=== PATIENT | female | born 1935 | race Caucasian/White ===

== ENCOUNTER 2017-07-22 23:40 | Inpatient (IN) | payer MEDICARE, OTHER ==
[2017-07-23 00:22] LABS: ADD MAN DIFF? NO
[2017-07-23 00:23] LABS: WHITE BLOOD COUNT 14.4 10^3/ul (4.8-10.8)
[2017-07-23 00:23] LABS: BASOPHIL # 0.1 10^3/ul (0.0-0.1); BASOPHILS % 0.3 % (0.0-2.0); EOSINOPHILS # 0.3 10^3/ul (0.0-0.5); HEMATOCRIT 36.9 % (37.0-47.0); HEMOGLOBIN 11.7 g/dl (12.0-16.0); LYMPHOCYTES # 1.7 10^3/ul (0.8-2.9); LYMPHOCYTES % 11.6 % (15.0-51.0); MEAN CORPUSCULAR HEMOGLOBIN 25.5 pg (29.0-33.0); MEAN CORPUSCULAR HGB CONC 31.7 g/dl (32.0-37.0); MEAN CORPUSCULAR VOLUME 80.6 fl (82.0-101.0); MEAN PLATELET VOLUME 12.6 fl (7.4-10.4); MONOCYTE # 0.8 10^3/ul (0.3-0.9); MONOCYTES % 5.7 % (0.0-11.0); NEUTROPHIL # 11.5 10^3/ul (1.6-7.5); NEUTROPHILS % 80.1 % (39.0-77.0); PLATELET COUNT 224 10^3/UL (140-415); RED BLOOD COUNT 4.58 10^6/ul (4.20-5.40); RED CELL DISTRIBUTION WIDTH 15.4 % (11.5-14.5)
[2017-07-23 00:41] LABS: ALANINE AMINOTRANSFERASE 21 IU/L (13-69); ALBUMIN 3.7 g/dl (3.3-4.9); ALKALINE PHOSPHATASE 119 IU/L (42-121); ANION GAP 13 (8-16); ASPARTATE AMINO TRANSFERASE 20 IU/L (15-46); BILIRUBIN,INDIRECT 0.1 mg/dl (0-1.1); BILIRUBIN,TOTAL 0.1 mg/dl (0.2-1.3); BLOOD UREA NITROGEN 26 mg/dl (7-20); CALCIUM 9.5 mg/dl (8.4-10.2); CARBON DIOXIDE 25 mmol/L (21-31); CHLORIDE 107 mmol/L (97-110); CREATININE 0.82 mg/dl (0.44-1.00); GLUCOSE 101 mg/dl (70-220); POTASSIUM 3.9 mmol/L (3.5-5.1); SODIUM 141 mmol/L (135-144); TOTAL PROTEIN 7.4 g/dl (6.1-8.1)
[2017-07-23 00:54] LABS: TROPONIN-I < 0.012 ng/ml (0.00-0.12)
[2017-07-23 00:59] LABS: INR 1.08; PROTIME 14.1 Sec (11.9-14.9); PT RATIO 1.1
[2017-07-23 01:00] LABS: LACTIC ACID 2.4 mmol/L (0.5-2.0)
[2017-07-23 01:08] LABS: ADD UMIC YES; UR ASCORBIC ACID NEGATIVE (NEGATIVE); UR BILIRUBIN (Dip) NEGATIVE (NEGATIVE); UR BLOOD (Dip) 1+ mg/dL (NEGATIVE); UR CLARITY CLEAR (CLEAR); UR COLOR YELLOW (YELLOW); UR GLUCOSE (Dip) 3+ mg/dL (NEGATIVE); UR KETONES (Dip) NEGATIVE (NEGATIVE); UR LEUKOCYTE ESTERASE (Dip) NEGATIVE Leu/ul (NEGATIVE); UR NITRITE (Dip) NEGATIVE (NEGATIVE); UR RBC 13 /HPF (0-5); UR SPECIFIC GRAVITY (Dip) 1.011 (1.003-1.030); UR TOTAL PROTEIN (Dip) 2+ mg/dl (NEGATIVE); UR UROBILINOGEN (Dip) NEGATIVE (NEGATIVE); UR WBC 2 /HPF (0-5)
[2017-07-23] MEDS: SODIUM CHLORIDE 0.9% 1L BAG IV* (01:37)
[2017-07-23] MEDS: CEFEPIME 2GM/50 ML (PMX) 50 ML IVPB (01:37)
[2017-07-23] MEDS: VANCOMYCIN 1 GM (PMX) 250 ML IVPB (02:24)
[2017-07-23 03:39] LABS: LACTIC ACID 1.3 mmol/L (0.5-2.0)
[2017-07-23] MEDS: ALBUTEROL/IPRATROPIUM (NEB) 3 ML AMP HHN (03:57)
[2017-07-23] MEDS: METHYLPREDNISOLONE 40 MG INJ IV ×5 (04:09→23:58)
[2017-07-23] MEDS: DEXTROSE 5%-0.45% NACL 1,000 ML IV ×2 (04:10→17:58)
[2017-07-23] MEDS ORDERED: GLUCOSE GEL 15 GRAM TUBE BUCCAL (04:30)
[2017-07-23] MEDS ORDERED: GLUCAGON 1 MG INJ IM (04:30)
[2017-07-23] MEDS ORDERED: DEXTROSE 50% 50 ML SYRINGE IV ×2 (04:30)
[2017-07-23] MEDS ORDERED: GLUCOSE GEL 15 GRAM TUBE PO ×2 (04:30)
[2017-07-23] MEDS: INSULIN ASPART [NOVOLOG] 3 ML PEN SC ×6 (04:51→21:58)
[2017-07-23] MEDS: LEVOFLOXACIN 750MG/D5W (PMX) 150 ML IVPB (05:10)
[2017-07-23 05:50] LABS: ADD MAN DIFF? NO
[2017-07-23 06:00] LABS: WHITE BLOOD COUNT 9.9 10^3/ul (4.8-10.8)
[2017-07-23 06:00] LABS: BASOPHILS % 0.2 % (0.0-2.0); EOSINOPHILS # 0.1 10^3/ul (0.0-0.5); LYMPHOCYTES # 1.2 10^3/ul (0.8-2.9); LYMPHOCYTES % 12.5 % (15.0-51.0); MEAN CORPUSCULAR HEMOGLOBIN 25.7 pg (29.0-33.0); MEAN CORPUSCULAR HGB CONC 32.4 g/dl (32.0-37.0); MEAN CORPUSCULAR VOLUME 79.4 fl (82.0-101.0); MEAN PLATELET VOLUME 12.9 fl (7.4-10.4); MONOCYTE # 0.3 10^3/ul (0.3-0.9); MONOCYTES % 3.3 % (0.0-11.0); NEUTROPHIL # 8.2 10^3/ul (1.6-7.5); NEUTROPHILS % 82.6 % (39.0-77.0); PLATELET COUNT 212 10^3/UL (140-415); RED BLOOD COUNT 4.28 10^6/ul (4.20-5.40); RED CELL DISTRIBUTION WIDTH 15.4 % (11.5-14.5)
[2017-07-23 06:20] LABS: ANION GAP 13 (8-16); BLOOD UREA NITROGEN 21 mg/dl (7-20); CALCIUM 8.6 mg/dl (8.4-10.2); CARBON DIOXIDE 27 mmol/L (21-31); CHLORIDE 110 mmol/L (97-110); CREATININE 0.73 mg/dl (0.44-1.00); GLUCOSE 138 mg/dl (70-220); POTASSIUM 4.8 mmol/L (3.5-5.1); SODIUM 145 mmol/L (135-144)
[2017-07-23 06:21] LABS: LACTIC ACID 1.3 mmol/L (0.5-2.0)
[2017-07-23] MEDS: ENOXAPARIN 40 MG/0.4 ML SYG SC (08:24)
[2017-07-23 13:52] LABS: HEMOGLOBIN A1C 10.5 % (0-5.9); THYROID STIMULATING HORMONE 0.299 MIU/L (0.465-4.680)
[2017-07-23] MEDS: INSULIN GLARGINE [LANtus] 3 ML PEN SC (20:24)
[2017-07-23] MEDS ORDERED: INSULIN GLARGINE HUM REC ANLOG 26 UNIT SQ (21:00)
[2017-07-23] MEDS ORDERED: [UNRECOGNIZED DRUG - OTHER] SQ (21:00)
[2017-07-23] MEDS: ATORVASTATIN 20 MG TAB PO (21:15)
[2017-07-23] MEDS: SOD CHLORIDE 0.45% 1,000 ML IV (21:59)
[2017-07-24] MEDS: INSULIN ASPART [NOVOLOG] 3 ML PEN SC ×9 (01:12→21:08)
[2017-07-24] MEDS ORDERED: ACCU-CHEK XX (02:00)
[2017-07-24] MEDS: ACCU-CHEK XX (02:00)
[2017-07-24] MEDS: METHYLPREDNISOLONE 40 MG INJ IV ×4 (05:30→23:49)
[2017-07-24 05:56] LABS: ADD MAN DIFF? NO
[2017-07-24 05:58] LABS: WHITE BLOOD COUNT 6.6 10^3/ul (4.8-10.8)
[2017-07-24 05:58] LABS: HEMOGLOBIN 10.9 g/dl (12.0-16.0); LYMPHOCYTES # 1.1 10^3/ul (0.8-2.9); LYMPHOCYTES % 16.1 % (15.0-51.0); MEAN CORPUSCULAR HEMOGLOBIN 25.7 pg (29.0-33.0); MEAN CORPUSCULAR HGB CONC 32.1 g/dl (32.0-37.0); MEAN CORPUSCULAR VOLUME 80.2 fl (82.0-101.0); MEAN PLATELET VOLUME 12.7 fl (7.4-10.4); MONOCYTE # 0.2 10^3/ul (0.3-0.9); MONOCYTES % 2.9 % (0.0-11.0); NEUTROPHIL # 5.3 10^3/ul (1.6-7.5); NEUTROPHILS % 80.5 % (39.0-77.0); PLATELET COUNT 210 10^3/UL (140-415); RED BLOOD COUNT 4.24 10^6/ul (4.20-5.40); RED CELL DISTRIBUTION WIDTH 15.1 % (11.5-14.5)
[2017-07-24 06:50] LABS: ANION GAP 12 (8-16); BLOOD UREA NITROGEN 21 mg/dl (7-20); CALCIUM 8.7 mg/dl (8.4-10.2); CARBON DIOXIDE 28 mmol/L (21-31); CHLORIDE 108 mmol/L (97-110); CREATININE 0.89 mg/dl (0.44-1.00); GLUCOSE 230 mg/dl (70-220); POTASSIUM 4.5 mmol/L (3.5-5.1); SODIUM 143 mmol/L (135-144)
[2017-07-24] MEDS: ASPIRIN 81 MG TAB PO (08:14)
[2017-07-24] MEDS: DULOXETINE 30 MG CAP DR PO (08:14)
[2017-07-24] MEDS: PANTOPRAZOLE (EC) 40 MG TAB PO (08:14)
[2017-07-24] MEDS: ENOXAPARIN 40 MG/0.4 ML SYG SC (08:18)
[2017-07-24] MEDS: ALBUTEROL/IPRATROPIUM (NEB) 3 ML AMP HHN (09:57)
[2017-07-24] MEDS: SOD CHLORIDE 0.45% 1,000 ML IV (17:20)
[2017-07-24] MEDS: INSULIN GLARGINE [LANtus] 3 ML PEN SC (20:10)
[2017-07-24] MEDS: ATORVASTATIN 20 MG TAB PO (20:54)
[2017-07-25] MEDS: ACCU-CHEK XX (02:00)
[2017-07-25] MEDS: METHYLPREDNISOLONE 40 MG INJ IV ×3 (05:39→18:01)
[2017-07-25] MEDS: LEVOFLOXACIN 500 MG TAB PO (05:39)
[2017-07-25 07:17] LABS: ADD MAN DIFF? NO
[2017-07-25 07:22] LABS: BASOPHILS % 0.1 % (0.0-2.0); HEMATOCRIT 32.5 % (37.0-47.0); HEMOGLOBIN 10.8 g/dl (12.0-16.0); LYMPHOCYTES % 11.6 % (15.0-51.0); MEAN CORPUSCULAR HEMOGLOBIN 25.9 pg (29.0-33.0); MEAN CORPUSCULAR HGB CONC 33.2 g/dl (32.0-37.0); MEAN CORPUSCULAR VOLUME 77.9 fl (82.0-101.0); MONOCYTE # 0.3 10^3/ul (0.3-0.9); NEUTROPHIL # 7.6 10^3/ul (1.6-7.5); PLATELET COUNT 222 10^3/UL (140-415); RED BLOOD COUNT 4.17 10^6/ul (4.20-5.40); RED CELL DISTRIBUTION WIDTH 15.2 % (11.5-14.5)
[2017-07-25 07:22] LABS: WHITE BLOOD COUNT 8.9 10^3/ul (4.8-10.8)
[2017-07-25 07:46] LABS: ANION GAP 11 (8-16); BLOOD UREA NITROGEN 28 mg/dl (7-20); CALCIUM 8.7 mg/dl (8.4-10.2); CARBON DIOXIDE 28 mmol/L (21-31); CHLORIDE 109 mmol/L (97-110); CREATININE 0.81 mg/dl (0.44-1.00); GLUCOSE 331 mg/dl (70-220); POTASSIUM 4.5 mmol/L (3.5-5.1); SODIUM 143 mmol/L (135-144)
[2017-07-25] MEDS: PANTOPRAZOLE (EC) 40 MG TAB PO (07:56)
[2017-07-25] MEDS: INSULIN ASPART [NOVOLOG] 3 ML PEN SC ×7 (07:58→21:10)
[2017-07-25] MEDS: ASPIRIN 81 MG TAB PO (08:17)
[2017-07-25] MEDS: DULOXETINE 30 MG CAP DR PO (08:17)
[2017-07-25] MEDS: ENOXAPARIN 40 MG/0.4 ML SYG SC (08:18)
[2017-07-25] MEDS: INSULIN GLARGINE [LANtus] 3 ML PEN SC (20:07)
[2017-07-25] MEDS: ATORVASTATIN 20 MG TAB PO (21:06)
[2017-07-26] MEDS: METHYLPREDNISOLONE 40 MG INJ IV ×4 (00:40→17:37)
[2017-07-26] MEDS: ACCU-CHEK XX (02:00)
[2017-07-26] MEDS: LEVOFLOXACIN 500 MG TAB PO (05:41)
[2017-07-26 06:27] LABS: ADD MAN DIFF? NO
[2017-07-26 06:39] LABS: HEMATOCRIT 32.6 % (37.0-47.0); HEMOGLOBIN 10.9 g/dl (12.0-16.0); LYMPHOCYTES # 0.9 10^3/ul (0.8-2.9); LYMPHOCYTES % 10.4 % (15.0-51.0); MEAN CORPUSCULAR HGB CONC 33.4 g/dl (32.0-37.0); MEAN CORPUSCULAR VOLUME 77.8 fl (82.0-101.0); MEAN PLATELET VOLUME 12.6 fl (7.4-10.4); MONOCYTE # 0.2 10^3/ul (0.3-0.9); NEUTROPHIL # 7.1 10^3/ul (1.6-7.5); NEUTROPHILS % 87.4 % (39.0-77.0); PLATELET COUNT 197 10^3/UL (140-415); RED BLOOD COUNT 4.19 10^6/ul (4.20-5.40); RED CELL DISTRIBUTION WIDTH 14.8 % (11.5-14.5)
[2017-07-26 06:39] LABS: WHITE BLOOD COUNT 8.2 10^3/ul (4.8-10.8)
[2017-07-26 06:57] LABS: ANION GAP 8 (8-16); BLOOD UREA NITROGEN 36 mg/dl (7-20); CALCIUM 8.5 mg/dl (8.4-10.2); CARBON DIOXIDE 28 mmol/L (21-31); CHLORIDE 109 mmol/L (97-110); CREATININE 0.79 mg/dl (0.44-1.00); GLUCOSE 232 mg/dl (70-220); POTASSIUM 4.4 mmol/L (3.5-5.1); SODIUM 141 mmol/L (135-144)
[2017-07-26] MEDS: DULOXETINE 30 MG CAP DR PO (08:20)
[2017-07-26] MEDS: ASPIRIN 81 MG TAB PO (08:20)
[2017-07-26] MEDS: PANTOPRAZOLE (EC) 40 MG TAB PO (08:21)
[2017-07-26] MEDS: ENOXAPARIN 40 MG/0.4 ML SYG SC (08:22)
[2017-07-26] MEDS: INSULIN ASPART [NOVOLOG] 3 ML PEN SC ×7 (08:23→20:36)
[2017-07-26 16:33] LABS: IRON 68 ug/dl (35-150)
[2017-07-26 16:42] LABS: % IRON SATURATION 22 % SAT (22-52); TOTAL IRON BINDING CAPACITY 307 ug/dl (241-421)
[2017-07-26 17:09] LABS: FERRITIN 12.5 ng/ml (11.1-264.0)
[2017-07-26] MEDS: NPH, HUMAN INSULIN ISOPHANE 3ML VIAL SC (17:40)
[2017-07-26] MEDS ORDERED: LEVALBUTEROL (NEB) 0.63 MG/3 ML AMP HHN (18:30)
[2017-07-26] MEDS: LEVALBUTEROL (NEB) 0.63 MG/3 ML AMP HHN (20:36)
[2017-07-26] MEDS: INSULIN GLARGINE [LANtus] 3 ML PEN SC (20:39)
[2017-07-26] MEDS: ATORVASTATIN 20 MG TAB PO (20:39)
[2017-07-27] MEDS: METHYLPREDNISOLONE 40 MG INJ IV ×4 (00:35→17:45)
[2017-07-27] MEDS: NPH, HUMAN INSULIN ISOPHANE 3ML VIAL SC ×4 (00:36→17:45)
[2017-07-27] MEDS: LEVALBUTEROL (NEB) 0.63 MG/3 ML AMP HHN ×4 (01:32→19:22)
[2017-07-27] MEDS: ACCU-CHEK XX (02:00)
[2017-07-27 05:27] LABS: ADD MAN DIFF? NO
[2017-07-27 05:42] LABS: ABNORMAL IP MESSAGE 1; HEMATOCRIT 33.8 % (37.0-47.0); LYMPHOCYTES # 0.5 10^3/ul (0.8-2.9); LYMPHOCYTES % 8.1 % (15.0-51.0); MEAN CORPUSCULAR HEMOGLOBIN 25.5 pg (29.0-33.0); MEAN CORPUSCULAR HGB CONC 32.5 g/dl (32.0-37.0); MEAN CORPUSCULAR VOLUME 78.2 fl (82.0-101.0); MEAN PLATELET VOLUME 13.4 fl (7.4-10.4); MONOCYTE # 0.2 10^3/ul (0.3-0.9); MONOCYTES % 3.7 % (0.0-11.0); NEUTROPHIL # 5.7 10^3/ul (1.6-7.5); NEUTROPHILS % 87.7 % (39.0-77.0); PLATELET COUNT 198 10^3/UL (140-415); RED BLOOD COUNT 4.32 10^6/ul (4.20-5.40); RED CELL DISTRIBUTION WIDTH 14.6 % (11.5-14.5)
[2017-07-27 05:42] LABS: WHITE BLOOD COUNT 6.5 10^3/ul (4.8-10.8)
[2017-07-27 05:52] LABS: POSITIVE DIFF @See below
[2017-07-27 06:16] LABS: ANION GAP 13 (8-16); BLOOD UREA NITROGEN 37 mg/dl (7-20); CALCIUM 8.5 mg/dl (8.4-10.2); CARBON DIOXIDE 29 mmol/L (21-31); CHLORIDE 108 mmol/L (97-110); CREATININE 0.74 mg/dl (0.44-1.00); GLUCOSE 145 mg/dl (70-220); POTASSIUM 4.2 mmol/L (3.5-5.1); SODIUM 146 mmol/L (135-144)
[2017-07-27] MEDS: PANTOPRAZOLE (EC) 40 MG TAB PO (06:56)
[2017-07-27] MEDS: INSULIN ASPART [NOVOLOG] 3 ML PEN SC ×8 (07:30→20:53)
[2017-07-27] MEDS: ASPIRIN 81 MG TAB PO (08:35)
[2017-07-27] MEDS: DULOXETINE 30 MG CAP DR PO (08:35)
[2017-07-27] MEDS: ENOXAPARIN 40 MG/0.4 ML SYG SC (08:37)
[2017-07-27] MEDS: INSULIN GLARGINE [LANtus] 3 ML PEN SC (20:51)
[2017-07-27] MEDS: ATORVASTATIN 20 MG TAB PO (20:52)
[2017-07-28] MEDS: METHYLPREDNISOLONE 40 MG INJ IV ×4 (00:07→17:21)
[2017-07-28] MEDS: NPH, HUMAN INSULIN ISOPHANE 3ML VIAL SC ×4 (00:08→17:25)
[2017-07-28] MEDS: LEVALBUTEROL (NEB) 0.63 MG/3 ML AMP HHN ×4 (01:36→19:47)
[2017-07-28] MEDS: ACCU-CHEK XX (02:07)
[2017-07-28 04:58] LABS: ADD MAN DIFF? NO
[2017-07-28 05:00] LABS: BASOPHILS % 0.1 % (0.0-2.0); HEMATOCRIT 35.1 % (37.0-47.0); HEMOGLOBIN 11.4 g/dl (12.0-16.0); LYMPHOCYTES # 0.7 10^3/ul (0.8-2.9); LYMPHOCYTES % 8.3 % (15.0-51.0); MEAN CORPUSCULAR HEMOGLOBIN 25.3 pg (29.0-33.0); MEAN CORPUSCULAR HGB CONC 32.5 g/dl (32.0-37.0); MONOCYTE # 0.4 10^3/ul (0.3-0.9); MONOCYTES % 4.4 % (0.0-11.0); NEUTROPHIL # 6.9 10^3/ul (1.6-7.5); NEUTROPHILS % 86.7 % (39.0-77.0); PLATELET COUNT 190 10^3/UL (140-415); RED CELL DISTRIBUTION WIDTH 14.6 % (11.5-14.5)
[2017-07-28 06:08] LABS: ANION GAP 12 (8-16); BLOOD UREA NITROGEN 35 mg/dl (7-20); CALCIUM 8.7 mg/dl (8.4-10.2); CARBON DIOXIDE 31 mmol/L (21-31); CHLORIDE 107 mmol/L (97-110); CREATININE 0.68 mg/dl (0.44-1.00); GLUCOSE 178 mg/dl (70-220); POTASSIUM 4.1 mmol/L (3.5-5.1); SODIUM 146 mmol/L (135-144)
[2017-07-28] MEDS: INSULIN ASPART [NOVOLOG] 3 ML PEN SC ×7 (07:30→20:25)
[2017-07-28] MEDS: PANTOPRAZOLE (EC) 40 MG TAB PO (08:08)
[2017-07-28] MEDS: ENOXAPARIN 40 MG/0.4 ML SYG SC (08:35)
[2017-07-28] MEDS: ASPIRIN 81 MG TAB PO (08:36)
[2017-07-28] MEDS: DULOXETINE 30 MG CAP DR PO (08:36)
[2017-07-28] MEDS: SALMETEROL/FLUTICASONE 250/50 INHA INH ×2 (12:30→20:26)
[2017-07-28] MEDS: TIOTROPIUM 18 MCG CAPSULE INHA DEV INH (12:30)
[2017-07-28] MEDS: INSULIN GLARGINE [LANtus] 3 ML PEN SC (20:24)
[2017-07-28] MEDS: MONTELUKAST 10 MG TAB PO (20:26)
[2017-07-28] MEDS: ATORVASTATIN 20 MG TAB PO (20:26)
[2017-07-29] MEDS: METHYLPREDNISOLONE 40 MG INJ IV ×4 (00:14→17:33)
[2017-07-29] MEDS: NPH, HUMAN INSULIN ISOPHANE 3ML VIAL SC ×4 (00:16→17:35)
[2017-07-29] MEDS: LEVALBUTEROL (NEB) 0.63 MG/3 ML AMP HHN ×4 (01:52→20:00)
[2017-07-29] MEDS: ACCU-CHEK XX (02:06)
[2017-07-29 06:02] LABS: ABNORMAL IP MESSAGE 1; ADD MAN DIFF? NO; HEMATOCRIT 34.3 % (37.0-47.0); HEMOGLOBIN 11.3 g/dl (12.0-16.0); LYMPHOCYTES # 0.6 10^3/ul (0.8-2.9); MEAN CORPUSCULAR HEMOGLOBIN 25.6 pg (29.0-33.0); MEAN CORPUSCULAR HGB CONC 32.9 g/dl (32.0-37.0); MEAN CORPUSCULAR VOLUME 77.6 fl (82.0-101.0); MEAN PLATELET VOLUME 13.2 fl (7.4-10.4); MONOCYTE # 0.4 10^3/ul (0.3-0.9); MONOCYTES % 4.9 % (0.0-11.0); NEUTROPHIL # 6.9 10^3/ul (1.6-7.5); NEUTROPHILS % 86.4 % (39.0-77.0); PLATELET COUNT 175 10^3/UL (140-415); RED BLOOD COUNT 4.42 10^6/ul (4.20-5.40); RED CELL DISTRIBUTION WIDTH 14.6 % (11.5-14.5)
[2017-07-29 06:40] LABS: POSITIVE DIFF @See below
[2017-07-29 07:09] LABS: ANION GAP 10 (8-16); BLOOD UREA NITROGEN 32 mg/dl (7-20); CALCIUM 8.6 mg/dl (8.4-10.2); CARBON DIOXIDE 33 mmol/L (21-31); CHLORIDE 105 mmol/L (97-110); CREATININE 0.68 mg/dl (0.44-1.00); GLUCOSE 131 mg/dl (70-220); POTASSIUM 3.9 mmol/L (3.5-5.1); SODIUM 144 mmol/L (135-144)
[2017-07-29] MEDS: INSULIN ASPART [NOVOLOG] 3 ML PEN SC ×7 (07:30→20:15)
[2017-07-29] MEDS: PANTOPRAZOLE (EC) 40 MG TAB PO (08:12)
[2017-07-29] MEDS: TIOTROPIUM 18 MCG CAPSULE INHA DEV INH (08:42)
[2017-07-29] MEDS: ASPIRIN 81 MG TAB PO (08:43)
[2017-07-29] MEDS: SALMETEROL/FLUTICASONE 250/50 INHA INH ×2 (08:43→20:12)
[2017-07-29] MEDS: DULOXETINE 30 MG CAP DR PO (08:43)
[2017-07-29] MEDS: ENOXAPARIN 40 MG/0.4 ML SYG SC (08:44)
[2017-07-29] MEDS: INSULIN GLARGINE [LANtus] 3 ML PEN SC (20:11)
[2017-07-29] MEDS: MONTELUKAST 10 MG TAB PO (20:12)
[2017-07-29] MEDS: ATORVASTATIN 20 MG TAB PO (20:12)
[2017-07-30] MEDS: METHYLPREDNISOLONE 40 MG INJ IV ×5 (00:08→20:20)
[2017-07-30] MEDS: NPH, HUMAN INSULIN ISOPHANE 3ML VIAL SC ×5 (00:09→20:21)
[2017-07-30] MEDS: ACCU-CHEK XX (02:00)
[2017-07-30] MEDS: LEVALBUTEROL (NEB) 0.63 MG/3 ML AMP HHN ×4 (02:07→19:30)
[2017-07-30] MEDS: PANTOPRAZOLE (EC) 40 MG TAB PO (06:30)
[2017-07-30] MEDS: INSULIN ASPART [NOVOLOG] 3 ML PEN SC ×7 (07:54→20:22)
[2017-07-30] MEDS: DULOXETINE 30 MG CAP DR PO (08:49)
[2017-07-30] MEDS: ENOXAPARIN 40 MG/0.4 ML SYG SC (08:49)
[2017-07-30] MEDS: ASPIRIN 81 MG TAB PO (08:49)
[2017-07-30] MEDS: SALMETEROL/FLUTICASONE 250/50 INHA INH ×2 (08:50→20:23)
[2017-07-30] MEDS: TIOTROPIUM 18 MCG CAPSULE INHA DEV INH (08:50)
[2017-07-30] MEDS: ATORVASTATIN 20 MG TAB PO (20:20)
[2017-07-30] MEDS: MONTELUKAST 10 MG TAB PO (20:20)
[2017-07-30] MEDS: INSULIN GLARGINE [LANtus] 3 ML PEN SC (20:22)
[2017-07-31] MEDS: LEVALBUTEROL (NEB) 0.63 MG/3 ML AMP HHN ×4 (01:32→21:09)
[2017-07-31] MEDS: ACCU-CHEK XX (02:00)
[2017-07-31 05:04] LABS: ADD MAN DIFF? NO
[2017-07-31 05:07] LABS: BASOPHILS % 0.2 % (0.0-2.0); HEMATOCRIT 34.1 % (37.0-47.0); HEMOGLOBIN 11.3 g/dl (12.0-16.0); LYMPHOCYTES # 0.8 10^3/ul (0.8-2.9); LYMPHOCYTES % 7.7 % (15.0-51.0); MEAN CORPUSCULAR HEMOGLOBIN 25.7 pg (29.0-33.0); MEAN CORPUSCULAR HGB CONC 33.1 g/dl (32.0-37.0); MEAN CORPUSCULAR VOLUME 77.7 fl (82.0-101.0); MEAN PLATELET VOLUME 12.9 fl (7.4-10.4); MONOCYTE # 0.4 10^3/ul (0.3-0.9); MONOCYTES % 4.3 % (0.0-11.0); NEUTROPHIL # 8.4 10^3/ul (1.6-7.5); NEUTROPHILS % 86.8 % (39.0-77.0); NUCLEATED RED BLOOD CELLS% 0.2 /100WBC (0.0-0.0); PLATELET COUNT 181 10^3/UL (140-415); RED BLOOD COUNT 4.39 10^6/ul (4.20-5.40); RED CELL DISTRIBUTION WIDTH 14.6 % (11.5-14.5)
[2017-07-31 05:07] LABS: WHITE BLOOD COUNT 9.7 10^3/ul (4.8-10.8)
[2017-07-31 05:39] LABS: ANION GAP 8 (8-16); BLOOD UREA NITROGEN 32 mg/dl (7-20); CALCIUM 8.3 mg/dl (8.4-10.2); CARBON DIOXIDE 33 mmol/L (21-31); CHLORIDE 104 mmol/L (97-110); GLUCOSE 144 mg/dl (70-220); SODIUM 141 mmol/L (135-144)
[2017-07-31] MEDS: PANTOPRAZOLE (EC) 40 MG TAB PO (06:46)
[2017-07-31] MEDS: INSULIN ASPART [NOVOLOG] 3 ML PEN SC ×7 (07:30→20:21)
[2017-07-31] MEDS: DULOXETINE 30 MG CAP DR PO (08:18)
[2017-07-31] MEDS: TIOTROPIUM 18 MCG CAPSULE INHA DEV INH (08:19)
[2017-07-31] MEDS: SALMETEROL/FLUTICASONE 250/50 INHA INH ×2 (08:19→20:14)
[2017-07-31] MEDS: METHYLPREDNISOLONE 40 MG INJ IV ×2 (08:20→20:25)
[2017-07-31] MEDS: NPH, HUMAN INSULIN ISOPHANE 3ML VIAL SC ×2 (08:22→20:24)
[2017-07-31] MEDS: ENOXAPARIN 40 MG/0.4 ML SYG SC (08:22)
[2017-07-31] MEDS: ASPIRIN 81 MG TAB PO (08:25)
[2017-07-31] MEDS: ATORVASTATIN 20 MG TAB PO (20:14)
[2017-07-31] MEDS: MONTELUKAST 10 MG TAB PO (20:14)
[2017-07-31] MEDS: INSULIN GLARGINE [LANtus] 3 ML PEN SC (20:23)
[2017-08-01] MEDS: ACCU-CHEK XX (01:29)
[2017-08-01] MEDS: LEVALBUTEROL (NEB) 0.63 MG/3 ML AMP HHN ×4 (02:41→19:23)
[2017-08-01] MEDS: INSULIN ASPART [NOVOLOG] 3 ML PEN SC ×7 (07:30→20:39)
[2017-08-01] MEDS: SALMETEROL/FLUTICASONE 250/50 INHA INH ×2 (08:27→20:34)
[2017-08-01] MEDS: TIOTROPIUM 18 MCG CAPSULE INHA DEV INH (08:27)
[2017-08-01] MEDS: ASPIRIN 81 MG TAB PO (08:27)
[2017-08-01] MEDS: ENOXAPARIN 40 MG/0.4 ML SYG SC (08:28)
[2017-08-01] MEDS: METHYLPREDNISOLONE 40 MG INJ IV ×2 (08:28→20:33)
[2017-08-01] MEDS: PANTOPRAZOLE (EC) 40 MG TAB PO (08:28)
[2017-08-01] MEDS: DULOXETINE 30 MG CAP DR PO (08:28)
[2017-08-01] MEDS: NPH, HUMAN INSULIN ISOPHANE 3ML VIAL SC ×2 (08:30→20:40)
[2017-08-01] MEDS: MONTELUKAST 10 MG TAB PO (20:33)
[2017-08-01] MEDS: ATORVASTATIN 20 MG TAB PO (20:33)
[2017-08-01] MEDS: metFORMIN 500 MG TAB PO (20:34)
[2017-08-01] MEDS: INSULIN GLARGINE [LANtus] 3 ML PEN SC (20:38)
[2017-08-02] MEDS: LEVALBUTEROL (NEB) 0.63 MG/3 ML AMP HHN ×4 (01:14→19:36)
[2017-08-02] MEDS: ACCU-CHEK XX (02:29)
[2017-08-02] MEDS: PANTOPRAZOLE (EC) 40 MG TAB PO (05:24)
[2017-08-02] MEDS: INSULIN ASPART [NOVOLOG] 3 ML PEN SC ×7 (07:30→20:48)
[2017-08-02] MEDS: SALMETEROL/FLUTICASONE 250/50 INHA INH ×2 (09:06→20:39)
[2017-08-02] MEDS: TIOTROPIUM 18 MCG CAPSULE INHA DEV INH (09:07)
[2017-08-02] MEDS: ASPIRIN 81 MG TAB PO (09:08)
[2017-08-02] MEDS: metFORMIN 500 MG TAB PO ×2 (09:08→18:09)
[2017-08-02] MEDS: DULOXETINE 30 MG CAP DR PO (09:08)
[2017-08-02] MEDS: METHYLPREDNISOLONE 40 MG INJ IV ×2 (09:09→20:41)
[2017-08-02] MEDS: NPH, HUMAN INSULIN ISOPHANE 3ML VIAL SC ×2 (09:19→20:47)
[2017-08-02] MEDS: ENOXAPARIN 40 MG/0.4 ML SYG SC (09:20)
[2017-08-02] MEDS: INSULIN GLARGINE [LANtus] 3 ML PEN SC (20:40)
[2017-08-02] MEDS: MONTELUKAST 10 MG TAB PO (20:41)
[2017-08-02] MEDS: ATORVASTATIN 20 MG TAB PO (20:41)
[2017-08-03] MEDS: LEVALBUTEROL (NEB) 0.63 MG/3 ML AMP HHN ×4 (01:20→20:10)
[2017-08-03] MEDS: ACCU-CHEK XX (01:40)
[2017-08-03] MEDS: PANTOPRAZOLE (EC) 40 MG TAB PO (05:32)
[2017-08-03 06:18] LABS: ADD MAN DIFF? NO
[2017-08-03 06:22] LABS: ABNORMAL IP MESSAGE 1; BASOPHILS % 0.1 % (0.0-2.0); HEMATOCRIT 33.6 % (37.0-47.0); LYMPHOCYTES # 0.9 10^3/ul (0.8-2.9); LYMPHOCYTES % 7.9 % (15.0-51.0); MEAN CORPUSCULAR HEMOGLOBIN 25.5 pg (29.0-33.0); MEAN CORPUSCULAR HGB CONC 32.7 g/dl (32.0-37.0); MEAN PLATELET VOLUME 13.1 fl (7.4-10.4); MONOCYTE # 0.5 10^3/ul (0.3-0.9); MONOCYTES % 4.1 % (0.0-11.0); NEUTROPHIL # 10.4 10^3/ul (1.6-7.5); NEUTROPHILS % 86.6 % (39.0-77.0); PLATELET COUNT 177 10^3/UL (140-415); RED BLOOD COUNT 4.31 10^6/ul (4.20-5.40); RED CELL DISTRIBUTION WIDTH 14.9 % (11.5-14.5)
[2017-08-03 06:29] LABS: POSITIVE DIFF @See below
[2017-08-03 06:58] LABS: ANION GAP 11 (8-16); BLOOD UREA NITROGEN 36 mg/dl (7-20); CALCIUM 8.5 mg/dl (8.4-10.2); CARBON DIOXIDE 30 mmol/L (21-31); CHLORIDE 103 mmol/L (97-110); CREATININE 0.61 mg/dl (0.44-1.00); GLUCOSE 162 mg/dl (70-220); POTASSIUM 4.5 mmol/L (3.5-5.1); SODIUM 139 mmol/L (135-144)
[2017-08-03] MEDS: INSULIN ASPART [NOVOLOG] 3 ML PEN SC ×7 (08:11→21:00)
[2017-08-03] MEDS: METHYLPREDNISOLONE 40 MG INJ IV (08:12)
[2017-08-03] MEDS: NPH, HUMAN INSULIN ISOPHANE 3ML VIAL SC (08:13)
[2017-08-03] MEDS: ASPIRIN 81 MG TAB PO (08:57)
[2017-08-03] MEDS: DULOXETINE 30 MG CAP DR PO (08:57)
[2017-08-03] MEDS: SALMETEROL/FLUTICASONE 250/50 INHA INH ×2 (08:59→21:52)
[2017-08-03] MEDS: metFORMIN 500 MG TAB PO ×2 (08:59→17:25)
[2017-08-03] MEDS: TIOTROPIUM 18 MCG CAPSULE INHA DEV INH (09:00)
[2017-08-03] MEDS: ENOXAPARIN 40 MG/0.4 ML SYG SC (09:02)
[2017-08-03] MEDS: NYSTATIN 30 GM POWDER BTL TOP (21:53)
[2017-08-03] MEDS: INSULIN GLARGINE [LANtus] 3 ML PEN SC (21:54)
[2017-08-03] MEDS: ATORVASTATIN 20 MG TAB PO (21:55)
[2017-08-03] MEDS: MONTELUKAST 10 MG TAB PO (21:55)
[2017-08-03] MEDS: MICONAZOLE 200 MG VAG SUPP VAG (22:25)
[2017-08-04] MEDS: ACCU-CHEK XX (02:00)
[2017-08-04] MEDS: LEVALBUTEROL (NEB) 0.63 MG/3 ML AMP HHN ×4 (02:43→19:18)
[2017-08-04] MEDS: PANTOPRAZOLE (EC) 40 MG TAB PO (04:29)
[2017-08-04] MEDS: INSULIN ASPART [NOVOLOG] 3 ML PEN SC ×7 (07:30→21:46)
[2017-08-04] MEDS: DULOXETINE 30 MG CAP DR PO (08:29)
[2017-08-04] MEDS: SALMETEROL/FLUTICASONE 250/50 INHA INH ×2 (08:29→21:43)
[2017-08-04] MEDS: METHYLPREDNISOLONE 40 MG INJ IV (08:29)
[2017-08-04] MEDS: metFORMIN 500 MG TAB PO ×2 (08:29→18:01)
[2017-08-04] MEDS: ASPIRIN 81 MG TAB PO (08:29)
[2017-08-04] MEDS: NPH, HUMAN INSULIN ISOPHANE 3ML VIAL SC (08:31)
[2017-08-04] MEDS: ENOXAPARIN 40 MG/0.4 ML SYG SC (08:32)
[2017-08-04] MEDS: NYSTATIN 30 GM POWDER BTL TOP ×2 (08:32→21:43)
[2017-08-04] MEDS: HYDROCHLOROTHIAZIDE 25 MG TAB PO (08:35)
[2017-08-04] MEDS: TIOTROPIUM 18 MCG CAPSULE INHA DEV INH (08:35)
[2017-08-04] MEDS ORDERED: HYDROCHLOROTHIAZIDE 50 MG TAB PO (09:00)
[2017-08-04] MEDS: ATORVASTATIN 20 MG TAB PO (21:43)
[2017-08-04] MEDS: MONTELUKAST 10 MG TAB PO (21:43)
[2017-08-04] MEDS: MICONAZOLE 200 MG VAG SUPP VAG (21:43)
[2017-08-04] MEDS: INSULIN GLARGINE [LANtus] 3 ML PEN SC (21:45)
[2017-08-05] MEDS: ACCU-CHEK XX (01:40)
[2017-08-05] MEDS: LEVALBUTEROL (NEB) 0.63 MG/3 ML AMP HHN ×4 (01:42→19:22)
[2017-08-05] MEDS: INSULIN ASPART [NOVOLOG] 3 ML PEN SC ×7 (07:30→20:37)
[2017-08-05] MEDS: DULOXETINE 30 MG CAP DR PO (08:55)
[2017-08-05] MEDS: ASPIRIN 81 MG TAB PO (08:55)
[2017-08-05] MEDS: PANTOPRAZOLE (EC) 40 MG TAB PO (08:55)
[2017-08-05] MEDS: metFORMIN 500 MG TAB PO ×2 (08:55→17:42)
[2017-08-05] MEDS: METHYLPREDNISOLONE 40 MG INJ IV (08:56)
[2017-08-05] MEDS: SALMETEROL/FLUTICASONE 250/50 INHA INH ×2 (08:56→20:37)
[2017-08-05] MEDS: LISINOPRIL 20 MG TAB PO (08:56)
[2017-08-05] MEDS: HYDROCHLOROTHIAZIDE 25 MG TAB PO (08:56)
[2017-08-05] MEDS: ENOXAPARIN 40 MG/0.4 ML SYG SC (08:58)
[2017-08-05] MEDS: NPH, HUMAN INSULIN ISOPHANE 3ML VIAL SC (08:58)
[2017-08-05] MEDS: NYSTATIN 30 GM POWDER BTL TOP ×2 (08:59→20:38)
[2017-08-05] MEDS: TIOTROPIUM 18 MCG CAPSULE INHA DEV INH (10:32)
[2017-08-05] MEDS: INSULIN GLARGINE [LANtus] 3 ML PEN SC (20:35)
[2017-08-05] MEDS: ATORVASTATIN 20 MG TAB PO (20:37)
[2017-08-05] MEDS: MONTELUKAST 10 MG TAB PO (20:37)
[2017-08-05] MEDS: MICONAZOLE 200 MG VAG SUPP VAG (20:38)
[2017-08-06] MEDS: LEVALBUTEROL (NEB) 0.63 MG/3 ML AMP HHN (01:43)
[2017-08-06] MEDS: ACCU-CHEK XX (02:48)
== END 2017-08-06 05:57 | DRG 872 ==
LOC: PP2 07-23 01:31 → E/R 23:40
DX: A41.9 Sepsis, unspecified organism (principal); E11.65 Type 2 diabetes mellitus with hyperglycemia; I11.0 Hypertensive heart disease with heart failure; I50.9 Heart failure, unspecified; I69.951 Hemiplegia and hemiparesis following unspecified cerebrovascular disease affecting right dominant side; E78.5 Hyperlipidemia, unspecified; F41.9 Anxiety disorder, unspecified; F32.9 Major depressive disorder, single episode, unspecified; H91.10 Presbycusis, unspecified ear; J20.9 Acute bronchitis, unspecified; K21.9 Gastro-esophageal reflux disease without esophagitis; E66.9 Obesity, unspecified; Z68.33 Body mass index [BMI] 33.0-33.9, adult; Z79.82 Long term (current) use of aspirin; Z79.4 Long term (current) use of insulin
CPT/HCPCS: 36415; 71045; 80048; 80053; 81001; 82728; 82962; 83036; 83540; 83605; 84443; 84484; 85025; 85610; 85730; 87040; 87086; 92526; 92610; 93005; 94640; 94664; 96365; 96366; 96367; 97110; 97163; 97166; 97530; 97535; 99291-25

== ENCOUNTER → 2018-01-29 | Outpatient (CLI) | payer MEDICARE, OTHER ==
[2018-01-29 10:41] LABS: AADO2 Arterial 25.6 mmHg (7.0-24.0); Arterial Base Excess 2.1 mmol/L (-3.0-3); Arterial Blood Gas Oxygen Sat 94.8 mmHG (95.0-100.0); Arterial COHb 0.5 % (0.0-3.0); Arterial Fraction of Oxyhgb 94.2 % (93.0-99.0); Arterial HCO3 26.8 mmol/L (22.0-26.0); Arterial MetHb 0.1 % (0.0-1.5); Arterial Total Hemglobin 12.4 g/dl (12.0-18.0); Arterial pCO2 42.5 mmhg (35-45); MODE ROOM AIR; Site LB
== END | disposition home or self-care (01) ==
LOC: PUL 10:16
DX: R06.02 Shortness of breath (principal)
CPT/HCPCS: 36600; 82803

== ENCOUNTER 2018-04-17 08:19 | Emergency (ER) | payer MEDICARE, OTHER ==
[2018-04-17 09:18] LABS: ADD MAN DIFF? NO
[2018-04-17 09:20] LABS: BASOPHILS % 0.2 % (0.0-2.0); EOSINOPHILS # 0.2 10^3/ul (0.0-0.5); EOSINOPHILS % 1.3 % (0.0-7.0); HEMOGLOBIN 12.1 g/dl (12.0-16.0); LYMPHOCYTES % 15.9 % (15.0-51.0); MEAN CORPUSCULAR HEMOGLOBIN 25.1 pg (29.0-33.0); MEAN CORPUSCULAR VOLUME 80.7 fl (82.0-101.0); MEAN PLATELET VOLUME 12.5 fl (7.4-10.4); MONOCYTE # 0.8 10^3/ul (0.3-0.9); MONOCYTES % 6.2 % (0.0-11.0); NEUTROPHIL # 9.7 10^3/ul (1.6-7.5); NEUTROPHILS % 76.1 % (39.0-77.0); PLATELET COUNT 209 10^3/UL (140-415); RED BLOOD COUNT 4.83 10^6/ul (4.20-5.40); RED CELL DISTRIBUTION WIDTH 14.6 % (11.5-14.5)
[2018-04-17 09:20] LABS: WHITE BLOOD COUNT 12.7 10^3/ul (4.8-10.8)
[2018-04-17] MEDS: CEFTRIAXONE 1 GM/50 ML (PMX) 50 ML IVPB (09:29)
[2018-04-17 09:39] LABS: INR 1.02; PROTIME 13.5 Sec (11.9-14.9); PT RATIO 1.1
[2018-04-17 09:40] LABS: ANION GAP 6 (5-13); BLOOD UREA NITROGEN 17 mg/dl (7-20); CALCIUM 9.1 mg/dl (8.4-10.2); CARBON DIOXIDE 29 mmol/L (21-31); CHLORIDE 103 mmol/L (97-110); CREATININE 0.64 mg/dl (0.44-1.00); GLUCOSE 260 mg/dl (70-220); PARTIAL THROMBOPLASTIN TIME 31.8 Sec (23.0-35.0); POTASSIUM 4.5 mmol/L (3.5-5.1); SODIUM 138 mmol/L (135-144)
[2018-04-17 09:42] LABS: ADD UMIC YES; UR ASCORBIC ACID NEGATIVE (NEGATIVE); UR BACTERIA FEW /HPF (NONE SEEN); UR BILIRUBIN (Dip) NEGATIVE (NEGATIVE); UR BLOOD (Dip) NEGATIVE (NEGATIVE); UR CLARITY SLIGHTLY CLOUDY (CLEAR); UR COLOR YELLOW (YELLOW); UR GLUCOSE (Dip) 3+ mg/dL (NEGATIVE); UR KETONES (Dip) NEGATIVE (NEGATIVE); UR LEUKOCYTE ESTERASE (Dip) 2+ Leu/ul (NEGATIVE); UR NITRITE (Dip) NEGATIVE (NEGATIVE); UR RBC 3 /HPF (0-5); UR SPECIFIC GRAVITY (Dip) 1.012 (1.003-1.030); UR TOTAL PROTEIN (Dip) 1+ mg/dl (NEGATIVE); UR UROBILINOGEN (Dip) NEGATIVE (NEGATIVE); UR WBC 77 /HPF (0-5)
[2018-04-17 09:51] LABS: TROPONIN-I < 0.012 ng/ml (0.000-0.120)
[2018-04-17] MEDS: AZITHROMYCIN 500MG/NS (PMX) 250 ML IV (10:24)
[2018-04-17] MEDS: ALBUTEROL 0.083% (NEB) 2.5 MG/3 ML AMP HHN (10:47)
[2018-04-17] MEDS: IPRATROPIUM (NEB) 0.5 MG/2.5 ML AMP HHN (10:48)
== END 2018-04-17 12:36 | disposition home or self-care (01) ==
LOC: E/R 08:19
DX: N30.90 Cystitis, unspecified without hematuria (principal); R41.0 Disorientation, unspecified; R05 Cough; I10 Essential (primary) hypertension; E11.9 Type 2 diabetes mellitus without complications; A41.9 Sepsis, unspecified organism; Z86.73 Personal history of transient ischemic attack (TIA), and cerebral infarction without residual deficits; Z79.82 Long term (current) use of aspirin; Z79.4 Long term (current) use of insulin
CPT/HCPCS: 36415; 71045; 80048; 81001; 83605; 84484; 85025; 85610; 85730; 87040; 87086; 93005; 94664; 96374; 96375; 99285-25